=== PATIENT | female | born 1965 | race Caucasian/White ===

== ENCOUNTER → 2017-01-25 | Outpatient (CLI) | payer OTHER ==
[~2017-01-25] MED LIST: SERT1TAB72 PO
[2017-01-25 13:13] LABS: CALCIUM 8.9 mg/dl (8.5-10.1)
[2017-01-25 13:14] LABS: BLOOD UREA NITROGEN 14 mg/dl (7-18); BUN/CREATININE RATIO 17.1 (10-20); CARBON DIOXIDE 27 mmol/L (21-32); CHLORIDE 106 mmol/L (98-107); CHOLESTEROL 165 mg/dl (0-200); CREATININE 0.83 mg/dl (0.60-1.20); GLUCOSE 92 mg/dl (70-99); POTASSIUM 4.2 mmol/L (3.5-5.1); SODIUM 140 mmol/L (136-145)
[2017-01-25 13:17] LABS: CHOLESTEROL/HDL RATIO 2.1; HDL CHOLESTEROL 77 mg/dl; LDL CHOLESTEROL CALCULATED 74 mg/dl; TRIGLYCERIDES 69 mg/dl (0-150); VERY LOW DENSITY LIPOPROT CALC 14 mg/dl
== END | disposition home or self-care (01) ==
LOC: C.LABPVFM 09:39
PROVIDERS: ATTEND Family Medicine
DX: Z13.1 Encounter for screening for diabetes mellitus (principal); Z13.220 Encounter for screening for lipoid disorders

== ENCOUNTER → 2017-01-30 | Outpatient (CLI) | payer OTHER | END | disposition home or self-care (01) | LOC: C.PAPS 18:12 | PROVIDERS: ATTEND Family Medicine | DX: Z12.4 Encounter for screening for malignant neoplasm of cervix (principal) ==

== ENCOUNTER → 2017-08-26 | Outpatient (CLI) | payer BC | END | disposition home or self-care (01) | LOC: C.LABPVFM 11:37 | PROVIDERS: ATTEND Family Medicine | DX: R10.9 Unspecified abdominal pain (principal) ==

== ENCOUNTER 2025-05-11 17:14 | Observation (INO) ==
--- NOTE | 2025-05-11 17:35 | Emergency Department Note ---
Impression & Plan Chest pain ED Provider Note HISTORY OF PRESENT ILLNESS: Patient is a 59-year-old female presenting with chest pain. Patient reports that she has been having progressively worsening chest pain with any sort of activity for the last 2 months. Reports in the last 48 hours she has been having significant amounts of substernal chest pain. Locates the pain to the substernal region with radiation to her left shoulder and left neck. She denies any DVT or PE history. Denies any history of cardiac stents. She is on 81 mg of aspirin daily. She states that she recently had an abnormal echocardiogram and stress test. She saw her hand spinner a few days ago and was told that if she has any worsening of symptoms that she should present to the emergency department. Denies any abdominal pain. Reports some nausea. Denies any vomiting or diarrhea. ROS: as above PHYSICAL EXAM: Constitutional: Patient appears in no acute distress. HENT: Head: Normocephalic and atraumatic. Eyes: EOMI, PERRL Mouth/Throat: Mucous membranes moist. Neck: Trachea midline. Neck supple. Cardiovascular: RRR, No murmurs, rubs or gallops. Intact distal pulses. Pulmonary/Chest: No respiratory distress. Breath sounds clear and equal bilaterally. No wheezes or rales. Abdominal: Abdomen soft, no tenderness, rebound or guarding. Musculoskeletal: No edema, tenderness or deformity noted. Skin: Warm and dry. No rash, erythema, pallor or cyanosis Psychiatric: Appropriate mood and affect for situation. Neurological: Alert and keenly responsive. CN II-XII grossly intact, moving all extremities equally and fully. MDM: - Vitals signs showed hypertension - History obtained via patient. History as above. - Chronic conditions affecting care: HLD; depression; IBS - Differential diagnoses include, but are not limited to: Acute coronary syndrome; pulmonary embolism; dissection; tension pneumothorax; esophageal rupture; pneumonia - Order placed for continuous cardiac monitoring. At this time, monitor showed rate of 75 bpm with normal sinus rhythm, per my interpretation. - External medical records reviewed. Cardiology office visit note dated 05/06/2025 was reviewed. Patient was scheduled for an outpatient cardiac catheterization. It was recommended that she start 81 mg aspirin daily for her abnormal stress echocardiogram suggesting apical ischemia. - EKG image interpreted by myself showed normal sinus rhythm. Rate 73 bpm. QT 368. No acute ischemic changes. However, patient is noted to have some new T wave inversions, most notably in leads II, aVL and aVF. - Patient given 4 mg IV zofran and 4 mg IV morphine in ER for symptomatic management - Laboratory workup interpreted by myself showed normal WBC; stable electrolytes; normal AST/ALT; normal lipase; normal troponin - COVID/flu/RSV negative - CXR image reviewed and interpreted by myself is negative for pneumonia, per my interpretation. - Patient given 4 mg IV zofran and 4 mg IV morphine in ER. - Given patient's ongoing chest pain and known abnormal stress test in the outpatient setting, will admit to hospitalist service for discussion with cardiology about inpatient catheterization. - Patient complaining of worsening chest pain while in the emergency department. Repeat EKG obtained at 1749 reviewed and interpreted by myself showed normal sinus rhythm. Rate 73 bpm. QT 378. No acute ischemic changes. T wave inversion in lead III is still present, but aVL and aVR have resolved. - Discussion was had with community case manager about patient's case and need for admission - Hospitalist consulted for admission - Patient admitted to [facility] service for further evaluation and management. 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 of right ear Sensorineural hearing loss (SNHL) of both ears Atopic dermatitis Allergic rhinitis due to animals Allergic rhinitis due to dust mite Allergic rhinitis due to pollen Nasal valve collapse Nasal septal perforation Nasal septal deviation Hyposmia Chronic idiopathic urticaria Chronic rhinitis Rash Tinnitus, bilateral Conductive hearing loss of left ear with unrestricted hearing of right ear Hearing loss Acquired deviated nasal septum Chronic sinusitis Seasonal allergies History of colitis Mood swings reason for sertraline Right hip pain SVT (supraventricular tachycardia) pt unable to confirm Heart palpitations holter monitor approx 1 year ago - [place]; pt unsure of results -- no meds; no hand spinner -- says "rare" palpitation Medical History Abnormal stress echo History of COVID-19 05/2021: flu symptoms. resolved. 2020: loss of taste and smell. resolved. Depression Hx of basal cell carcinoma "freezes or vincent them off" in the dermatology office Hx of gastric ulcer (1984) Hx of supraventricular tachycardia pt unsure of details - no recent issues Degenerative disc disease Osteoarthritis Endometriosis hx History of colitis IBS (irritable bowel syndrome) Surgical History History of esophagogastroduodenoscopy (EGD) History of nasal septoplasty w/bilateral inferior turbinate reduction-06/18/24-Dr. Nelson History of wisdom tooth extraction History of carpal tunnel release of both wrists History of laparotomy for lysis of adhesion endometriosis History of appendectomy History of elbow surgery BL History of colonoscopy last 06/2020 S/P dilation and curettage History of cryosurgery Cervix in Status post laparoscopy L salpingectomy for ectopic Hx of laparoscopy endometriosis Family History Father Hypertension Hearing loss Heart disease Daughter Anxiety Sister Anxiety Son Asthma Other Allergies No family history of adverse response to anesthesia No family history of bleeding disorder Denies family history of Ovarian cancer Prostate cancer Myocardial infarction Breast cancer Colorectal cancer Uterine cancer Social History Smoking Status: Former smoker Tobacco Type: Cigarettes Age Started Using Tobacco: 14; Age Quit Using Tobacco: 32; packs per day: 1; Second Hand Exposure: No; Do You Dip or Chew Tobacco: No; Hx Alcohol Use: Yes Alcohol type: beer and wine Hx Substance Use: No Preferred Language: Sami Communication Ability: Effective Private Detective Required: No Beliefs That Will Affect Care: None marital status: Current Living Situation: Spouse current occupational status: employed current occupation: [employer] Feels Safe at Home: Yes caffeine: Yes Dental Care, Regularly: Yes Physical Activity Frequency: 3-4 Times per Week Seatbelt Use: always Sunscreen Use: Yes Assistive Devices: Glasses Allergies Allergies Allergy/AdvReac Type Severity Reaction Status Date / Time Sulfa (Sulfonamide Allergy Mild rash Verified 05/11/25 18:59 Antibiotics) tetracycline Allergy Mild rash Verified 05/11/25 18:59 Home Meds Home Medications Medication Instructions Recorded Confirmed L.acidophil-L.casei-B.bifid-B.longum-FOS 1 cap PO QAM 04/19/21 05/11/25 2 billion cell-50 mg capsule (Probiotic Blend) cholecalciferol (vitamin D3) 25 25 mcg PO QAM 04/19/21 05/11/25 mcg (1,000 unit) tablet (Vitamin D3) multivitamin with minerals 1 tab PO QAM 04/19/21 05/11/25 (Hair,Skin and Nails tablet) vitamin B complex 1 cap PO QAM 04/19/21 05/11/25 cetirizine 10 mg tablet 20 mg PO BID 06/09/24 05/11/25 fluticasone propionate 50 2 spray intranasal QAM 06/09/24 05/11/25 mcg/actuation nasal spray,suspension calcium carbonate 500 mg PO DAILY 05/11/25 05/11/25 hydrocortisone 2.5 % topical 1 applic topical BID PRN SKIN 05/11/25 05/11/25 ointment IRRITATIONS hydroxyzine HCl 25 mg tablet 25 mg PO HS PRN Itching 05/11/25 05/11/25 triamcinolone acetonide 0.1 % 1 applic topical BID PRN SKIN 05/11/25 05/11/25 topical ointment IRRITATIONS Previous Rx's Medication Instructions Recorded azelastine 137 mcg (0.1 %) nasal 2 spray intranasal BID PRN nasal 02/21/24 spray congestion #30 mL hydrocodone 5 mg-acetaminophen 325 1 tab PO Q6H PRN pain #30 tabs 06/18/24 mg tablet sertraline 50 mg tablet 50 mg PO QAM #90 tabs 10/14/24 ipratropium bromide 21 mcg (0.03 2 spray intranasal TID PRN 01/06/25 %) nasal spray postnasal drip #90 mL valacyclovir 500 mg tablet 500 mg PO QAM #90 tabs 04/13/25 Results & Data (ED) Vital Signs Vital Signs - 24 hr 05/11/25 17:16 05/11/25 17:36 05/11/25 17:36 Temperature 36.4 C L Temperature Source Temporal Artery Scan Pulse Rate 74 74 Pulse Rate from SpO2 Sensor Respiratory Rate 20 16 Respiratory Effort / Characteristics Non-Labored Respiratory Depth Normal Blood Pressure 156/84 H Blood Pressure Mean 108 Pulse Oximetry 96 98 98 Oxygen Delivery Method Room Air Room Air Room Air Sepsis Recent Fever Within 48 Hours No Sepsis New/Unexplained Change in Mental Status No Sepsis Action Taken by Nursing No Action Required 05/11/25 18:00 05/11/25 18:00 05/11/25 18:00 Temperature Temperature Source Pulse Rate Pulse Rate from SpO2 Sensor Respiratory Rate Respiratory Effort / Characteristics Respiratory Depth Blood Pressure 144/99 H 144/99 H 144/99 H Blood Pressure Mean 105 105 105 Pulse Oximetry Oxygen Delivery Method Sepsis Recent Fever Within 48 Hours Sepsis New/Unexplained Change in Mental Status Sepsis Action Taken by Nursing 05/11/25 18:00 05/11/25 18:02 05/11/25 18:03 Temperature Temperature Source Pulse Rate 68 78 Pulse Rate from SpO2 Sensor 73 Respiratory Rate 15 Respiratory Effort / Characteristics Respiratory Depth Blood Pressure 144/99 H Blood Pressure Mean 105 Pulse Oximetry 95 Oxygen Delivery Method Sepsis Recent Fever Within 48 Hours Sepsis New/Unexplained Change in Mental Status Sepsis Action Taken by Nursing 05/11/25 18:18 05/11/25 18:21 05/11/25 18:48 Temperature Temperature Source Pulse Rate 67 82 73 Pulse Rate from SpO2 Sensor 68 79 72 Respiratory Rate 16 18 20 Respiratory Effort / Characteristics Respiratory Depth Blood Pressure Blood Pressure Mean Pulse Oximetry 96 97 97 Oxygen Delivery Method Sepsis Recent Fever Within 48 Hours Sepsis New/Unexplained Change in Mental Status Sepsis Action Taken by Nursing 05/11/25 18:54 05/11/25 18:57 05/11/25 19:00 Temperature Temperature Source Pulse Rate 77 71 Pulse Rate from SpO2 Sensor 74 71 Respiratory Rate 16 13 Respiratory Effort / Characteristics Respiratory Depth Blood Pressure 134/78 Blood Pressure Mean 123 Pulse Oximetry 96 97 Oxygen Delivery Method Sepsis Recent Fever Within 48 Hours Sepsis New/Unexplained Change in Mental Status Sepsis Action Taken by Nursing 05/11/25 19:09 05/11/25 19:17 Temperature Temperature Source Pulse Rate 66 71 Pulse Rate from SpO2 Sensor 68 70 Respiratory Rate 14 18 Respiratory Effort / Characteristics Respiratory Depth Blood Pressure Blood Pressure Mean Pulse Oximetry 97 95 Oxygen Delivery Method Sepsis Recent Fever Within 48 Hours Sepsis New/Unexplained Change in Mental Status Sepsis Action Taken by Nursing Laboratory Data 05/11/25 17:29 05/11/25 17:29 Lab Results 05/11/25 05/11/25 Range/Units 17:29 Unknown WBC 5.13 (4.8-10.8) K/ul RBC 4.16 L (4.20-5.40) M/uL Hgb 13.5 (12.0-16.0) g/dl Hct 37.8 (37.0-47.0) % MCV 90.9 (80.0-100.0) fL MCH 32.5 (25.0-34.0) pg MCHC 35.7 (32.0-36.0) g/dL RDW Std Deviation 40.4 (36.4-46.3) fL RDW Coeff of [place] 12.1 (11.5-14.5) % Plt Count 247 (130-400) K/uL MPV 10.5 (9.4-12.4) fL Immature Gran % (Auto) 0.2 % Neut % (Auto) 45.8 % Lymph % (Auto) 44.8 % [place] % (Auto) 7.2 % Eos % (Auto) 1.6 % Baso % (Auto) 0.4 % Neut # (Auto) 2.35 (1.40-6.50) K/uL Lymph # (Auto) 2.30 (1.20-3.40) K/uL Upson # (Auto) 0.37 (0.11-0.59) K/uL Eos # (Auto) 0.08 (0.00-0.50) K/uL Baso # (Auto) 0.02 (0.00-0.20) K/uL Immature Gran # (Auto) 0.01 (0.01-0.20) K/uL Sodium 139 (136-145) mmol/L Potassium 4.1 (3.5-5.1) mmol/L Chloride 107 (98-107) mmol/L Carbon Dioxide 24 (21-32) mmol/L Anion Gap 8 (3-11) BUN 25 H (6-23) mg/dl Creatinine 0.76 (0.6-1.2) mg/dl Est Cr Clr Drug Dosing 70.2 ml/min eGFR 89.65 BUN/Creatinine Ratio 32.9 H (10-20) Glucose 95 (70-99(Fasting)) mg/dl Calcium 9.1 (8.6-10.3) mg/dl Total Bilirubin 0.3 (0.2-1.0) mg/dl AST 20 (13-39) U/L ALT 13 (7-52) U/L Alkaline Phosphatase 88 (34-104) U/L Troponin I High Sens 3.1 (0-14) pg/ml Total Protein 7.4 (6.0-8.3) gm/dl Albumin 4.4 (3.4-5.0) gm/dl Globulin 3.0 (2.5-4.0) gm/dl Albumin/Globulin Ratio 1.5 (0.9-2) Lipase 39 (11-82) U/L SARS-CoV-2 (PCR) NEGATIVE (Negative) Influenza Type A (PCR) Negative (Neg) Influenza Type B (PCR) Negative (Neg) RSV (RT-PCR) Negative (Neg) Administered Medications Discontinued Medications Morphine Sulfate (Morphine Sulfate 4 Mg/Ml 1 Ml Carp\\Vial) 4 mg IV NOW STA Stop: 05/11/25 17:35 Last Admin: 05/11/25 17:45 Dose: 4 mg Documented By: YVETTE Ondansetron HCl (Ondansetron Inj 2 Mg/Ml 2 Ml Vial) 4 mg IV NOW STA Stop: 05/11/25 17:35 Last Admin: 05/11/25 17:45 Dose: 4 mg Documented By: YVETTE Imaging Data Radiologist's Impression: Chest X-Ray 05/11/25 17:24 Chest radiograph, one view History: Chest pain Comparison: None Findings: Single AP view of the chest performed. No focal consolidation or pleural effusion. No pneumothorax. The cardiomediastinal silhouette is within normal limits. Normal pulmonary vascularity. No evidence for lymphadenopathy. No visualized bony or soft tissue abnormality. Impression: Normal chest radiograph Electronically signed by Shahid Jolly 05-11-2025 6:33 PM Discharge Plan Visit Data Chief Complaint: Chest Pain Stated Complaint: CHEST PAIN ED Provider: Melani Graf Discharge Problem: Chest pain Condition: Fair Forms Stand Alone Forms: My [facility] [place] [employer] Packaging Prescriptions Prescriptions: No Action sertraline 50 mg tablet 50 mg PO QAM Qty: 90 3RF Rx Instructions: take 1 tablet by mouth daily valacyclovir 500 mg tablet 500 mg PO QAM Qty: 90 1RF azelastine 137 mcg (0.1 %) spray,non-aerosol 2 spray intranasal BID PRN (Reason: nasal congestion) Qty: 30 11RF Rx Instructions: administer into each nostril ipratropium bromide 21 mcg (0.03 %) spray,non-aerosol 2 spray intranasal TID PRN (Reason: postnasal drip) Qty: 90 3RF Rx Instructions: administer into each nostril Hair,Skin and Nails Tablet 1 tab PO QAM vitamin B complex Capsule 1 cap PO QAM cholecalciferol (vitamin D3) [Vitamin D3] 25 mcg (1,000 unit) Tablet 25 mcg PO QAM Probiotic Blend 2 billion cell-50 mg Capsule 1 cap PO QAM fluticasone propionate 50 mcg/actuation spray,suspension 2 spray intranasal QAM Rx Instructions: administer into each nostril cetirizine 10 mg Tablet 20 mg PO BID hydrocodone-acetaminophen 5-325 mg tablet 1 tab PO Q6H PRN (Reason: pain) Qty: 30 0RF calcium carbonate [Calcium 500] 500 mg calcium (1,250 mg) Tablet 500 mg PO DAILY triamcinolone acetonide 0.1 % ointment 1 applic topical BID PRN (Reason: SKIN IRRITATIONS) Rx Instructions: Apply to affected area of neck and chest twice a day for 7 to 10 days hydroxyzine HCl 25 mg tablet 25 mg PO HS PRN (Reason: Itching) Rx Instructions: TAKE 1 TABLET BY MOUTH ONCE DAILY AT BEDTIME FOR ITCHING hydrocortisone 2.5 % ointment 1 applic topical BID PRN (Reason: SKIN IRRITATIONS) Rx Instructions: Apply to affected area face twice a day for 7 to 10 days Referrals Referrals: Karlene Spears MD [Primary Care Provider] -
[2025-05-11] MEDS: MoRPHine SULFATE 4 MG/ML 1 ML CARP\\VIAL IV STA (17:45)
[2025-05-11] MEDS: ONDANSETRON INJ 2 MG/ML 2 ML VIAL IV STA (17:45)
[2025-05-11 17:48] LABS: Hematocrit (blood only) 37.8 % (37.0-47.0); Hemoglobin 13.5 g/dl (12.0-16.0); Immature Granulocytes # (auto) 0.01 K/uL (0.01-0.20); Immature Granulocytes % (auto) 0.2 %; Mean Corpuscular Hemoglobin 32.5 pg (25.0-34.0); Mean Corpuscular Volume 90.9 fL (80.0-100.0); Platelet Count 247 K/uL (130-400); RDW Standard Deviation 40.4 fL (36.4-46.3); Red Blood Count 4.16 M/uL (4.20-5.40); White Blood Count 5.13 K/ul (4.8-10.8)
[2025-05-11 18:09] LABS: Alanine Aminotransferase 13.0 U/L (7-52); Albumin Globulin Ratio 1.5 (0.9-2); Albumin Level 4.4 gm/dl (3.4-5.0); Alkaline Phosphatase 88.0 U/L (34-104); Anion Gap 8.0 (3-11); Bilirubin,Total 0.3 mg/dl (0.2-1.0); Blood Urea Nitrogen 25.0 mg/dl (6-23); Calcium 9.1 mg/dl (8.6-10.3); Carbon Dioxide 24.0 mmol/L (21-32); Chloride 107.0 mmol/L (98-107); Creatinine Clr Calc Pharmacy 70.2 ml/min; Globulin 3.0 gm/dl (2.5-4.0); Glucose 95.0 mg/dl (70-99(Fasting)); Lipase 39.0 U/L (11-82); Potassium 4.1 mmol/L (3.5-5.1); Sodium 139.0 mmol/L (136-145); Total Protein 7.4 gm/dl (6.0-8.3)
--- NOTE | 2025-05-11 18:34 | XRay Report ---
Chest radiograph, one view History: Chest pain Comparison: None Findings: Single AP view of the chest performed. No focal consolidation or pleural effusion. No pneumothorax. The cardiomediastinal silhouette is within normal limits. Normal pulmonary vascularity. No evidence for lymphadenopathy. No visualized bony or soft tissue abnormality. Impression: Normal chest radiograph Electronically signed by Shahid Jolly 05-11-2025 6:33 PM
[2025-05-11 18:45] LABS: Influenza A virus by PCR Negative (Neg); Influenza B virus by PCR Negative (Neg); SARS CoV2 RNA(COVID-19) Ceph NEGATIVE (Negative)
--- NOTE | 2025-05-11 19:33 | History & Physical Report ---
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 Her evaluation is overall unremarkable at this time with a normal troponin but pending the repeat. She does have T wave abnormalities in the inferior leads on her initial EKG, seem to be mostly resolved on repeat. Continues to remain with chest pain, unresolved. Admission for persistent chest pain. #Chest pain Ongoing chest pain which has been persistent for 2 months, but worsened the night CUSTOMER CARE CONSULTANT and then again at 1530 day of arrival. She was diagnosed with a chest pain syndrome in presence of an abnormal stress echo per most recent cardiology note (05/06/[address] Chery). Stress echo April 22, 2025 revealed abnormal EKG response and suggested small area of apical hypokinesis with exercise. She is to be scheduled for cardiac catheterization but there was difficulties having this covered by insurance. Wells criteria 0; no clinical signs of DVT. Due to ongoing and worsening symptoms, admission for chest pain with cardio consult placed. - CBC grossly unremarkable; CMP BUN 25 and ratio 32.9; troponin 3.1, pending repeat - COVID/Flu/RSV negative - CXR WNL - EKG initially NSR with T wave abnormalities, resolved in EKG #2 - EKG prn CP - Echo 04/22/2025 abnormal for ischemia - Lipid panel 04/2025 total 217, LDL 110, HDL 76, TG 153; not on statin - start atorvastatin 40mg daily - Zofran prn N/V - NTG prn CP - Continue ASA daily - Cardiology consulted - appreciate input + recs #Allergies/Idiopathic urticaria- Cetirizine, azelastine nasal spray prn, flonase nasal spray, hydroxyzine prn, ipratropium bromide nasal spray prn - hold prn, continue daily medications #Psych- Sertraline - continue #Cold sores- Valacyclovir, takes every other day, last dose 05/10/2025 - continue No longer taking opioids; PDMP independently reviewed at time of admission - d/c hydrocodone-acetaminophen Dispo: Admit, PCU VTE Prophylaxis: SCDs This document was dictated utilizing [employer]. Please excuse any grammatical errors that may be secondary to use of this software. 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 Patient states that for the past 1 to 2 months she has had on and off chest pain that was mainly with exertion. The night CUSTOMER CARE CONSULTANT the patient noticed that she was having some left-sided chest discomfort which could not be resolved with changing position. She states that the day CUSTOMER CARE CONSULTANT she was on a walk for exercise and noticed that by the end of the walk she was incredibly fatigued which was abnormal for her as she is normally able to. She states that after climbing a flight of steps she normally have some SOB but then resolved with rest. Over the past day CUSTOMER CARE CONSULTANT, the fatigue has been worsening and the chest pain has been unresolved. States that she took aspirin the past 2 days CUSTOMER CARE CONSULTANT which seemed to help the chest pain minimally but it was still present. She describes the pain as starting to worsen at 1530 the day of arrival, described as a heaviness with occasional stabbing in the left side. It is located just under her breast, directly to the back in the same location, into her left side of neck and jaw, but not into her arm. Does not radiate elsewise. No nausea or vomiting. She states at its worst, it is a 6 out of 10 on the pain scale at presently it is a 3 out of 10 on the pain scale s/p morphine. She does have occasional dizziness that comes and goes mainly with deep breaths, but not elsewise. Denies palpitations, abdominal pain, N/V/D/C, numbness/tingling, fever/chills, URI symptoms, LUTS, calf pain or tenderness, edema, weakness, syncope, or falls. She has no history of DVT or PE. No family history of such. No hematologic conditions. She states that she was scheduled to have a catheterization but given that insurance would not cover it, it was not able to be placed on the schedule yet. Given that her pain was on relentless, she came to the ED. ED evaluation reveals CBC without leukocytosis, H&H stable; CMP BUN 25, ratio 32.9; troponin 3.1, pending repeat; COVID/flu/RSV negative; CXR normal; EKG #1 NSR, right superior axis deviation, T wave abnormality inferior leads at 73 bpm; EKG #2 NSR at 73 bpm.; Provided with Zofran 4 mg IV and morphine 4 mg IV in ED. Please see Dr. Lopez's attestation for adjustments/additions to treatment plan. Allergies Allergy/AdvReac Type Severity Reaction Status Date / Time Sulfa (Sulfonamide Allergy Mild rash Verified 05/11/25 18:59 Antibiotics) tetracycline Allergy Mild rash Verified 05/11/25 18:59 Home Medications Medication Instructions Recorded Confirmed Type L.acidophil-L.casei-B.bifid-B.longum-FOS 1 cap PO QAM 04/19/21 05/11/25 History 2 billion cell-50 mg capsule (Probiotic Blend) cholecalciferol (vitamin D3) 25 25 mcg PO QAM 04/19/21 05/11/25 History mcg (1,000 unit) tablet (Vitamin D3) multivitamin with minerals 1 tab PO QAM 04/19/21 05/11/25 History (Hair,Skin and Nails tablet) vitamin B complex 1 cap PO QAM 04/19/21 05/11/25 History azelastine 137 mcg (0.1 %) nasal 2 spray intranasal BID PRN nasal 02/21/24 05/11/25 Rx spray congestion #30 mL cetirizine 10 mg tablet 20 mg PO BID 06/09/24 05/11/25 History fluticasone propionate 50 2 spray intranasal QAM 06/09/24 05/11/25 History mcg/actuation nasal spray,suspension hydrocodone 5 mg-acetaminophen 325 1 tab PO Q6H PRN pain #30 tabs 06/18/24 05/11/25 Rx mg tablet sertraline 50 mg tablet 50 mg PO QAM #90 tabs 10/14/24 05/11/25 Rx ipratropium bromide 21 mcg (0.03 2 spray intranasal TID PRN 01/06/25 05/11/25 Rx %) nasal spray postnasal drip #90 mL valacyclovir 500 mg tablet 500 mg PO QAM #90 tabs 04/13/25 05/11/25 Rx calcium carbonate 500 mg PO DAILY 05/11/25 05/11/25 History hydrocortisone 2.5 % topical 1 applic topical BID PRN SKIN 05/11/25 05/11/25 History ointment IRRITATIONS hydroxyzine HCl 25 mg tablet 25 mg PO HS PRN Itching 05/11/25 05/11/25 History triamcinolone acetonide 0.1 % 1 applic topical BID PRN SKIN 05/11/25 05/11/25 History topical ointment IRRITATIONS Past Med/Surg History Problem List Chest pain (Acute) Hypercholesterolemia Chest pain radiating to jaw Chest pain Mixed conductive and sensorineural hearing loss of left ear with restricted hearing of right ear Sensorineural hearing loss (SNHL) of both ears Atopic dermatitis Allergic rhinitis due to animals Allergic rhinitis due to dust mite Allergic rhinitis due to pollen Nasal valve collapse Nasal septal perforation Nasal septal deviation Hyposmia Chronic idiopathic urticaria Chronic rhinitis Rash Tinnitus, bilateral Conductive hearing loss of left ear with unrestricted hearing of right ear Hearing loss Acquired deviated nasal septum Chronic sinusitis Seasonal allergies History of colitis Mood swings reason for sertraline Right hip pain SVT (supraventricular tachycardia) pt unable to confirm Heart palpitations holter monitor approx 1 year ago - [place]; pt unsure of results -- no meds; no study abroad coordinator -- says "rare" palpitation Medical History Abnormal stress echo History of COVID-19 05/2021: flu symptoms. resolved. 2020: loss of taste and smell. resolved. Depression Hx of basal cell carcinoma "freezes or vincent them off" in the dermatology office Hx of gastric ulcer (1984) Hx of supraventricular tachycardia pt unsure of details - no recent issues Degenerative disc disease Osteoarthritis Endometriosis hx History of colitis IBS (irritable bowel syndrome) Surgical History History of esophagogastroduodenoscopy (EGD) History of nasal septoplasty w/bilateral inferior turbinate reduction-06/18/24-Dr. Nelson History of wisdom tooth extraction History of carpal tunnel release of both wrists History of laparotomy for lysis of adhesion endometriosis History of appendectomy History of elbow surgery BL History of colonoscopy last 06/2020 S/P dilation and curettage History of cryosurgery Cervix in 1980s Status post laparoscopy L salpingectomy for ectopic Hx of laparoscopy endometriosis Family History Father Hypertension Hearing loss Heart disease Daughter Anxiety Sister Anxiety Son Asthma Other Allergies No family history of adverse response to anesthesia No family history of bleeding disorder Denies family history of Ovarian cancer Prostate cancer Myocardial infarction Breast cancer Colorectal cancer Uterine cancer Social History Smoking Status: Former smoker Tobacco Type: Cigarettes Age Started Using Tobacco: 14; Age Quit Using Tobacco: 32; packs per day: 1; Second Hand Exposure: No; Do You Dip or Chew Tobacco: No; Hx Alcohol Use: Yes Alcohol type: beer and wine Hx Substance Use: No Preferred Language: Syriac Communication Ability: Effective Skiing Instructor Required: No Beliefs That Will Affect Care: None marital status: Current Living Situation: Spouse current occupational status: employed current occupation: [employer] Feels Safe at Home: Yes Safety Concerns: Feels Safe At This Time caffeine: Yes Dental Care, Regularly: Yes Physical Activity Frequency: 3-4 Times per Week Seatbelt Use: always Sunscreen Use: Yes Assistive Devices: None Review of Systems Review of Systems: All systems reviewed & are unremarkable except as noted in Subjective Physical Exam Physical Exam: General: No acute distress Skin: Warm and dry Head: Normocephalic, atraumatic Eyes: PERRL, conjunctivae clear, sclera non-icteric ENT: External ear and ear canal without swelling; nose atraumatic; good dentition, tongue normal appearance, pharynx normal Neck: Supple, no LAD Cardio: RRR, no M/G/R, S1 and S2 normal; no tenderness to palpation of chest wall Resp: No respiratory distress, Lungs CTA in all lobes bilaterally, no wheezes, rales, or rhonchi Abdomen: Soft, symmetric, nontender; No masses or hepatosplenomegaly; Bowel sounds normoactive MSK: No deformities; pulses palpable and equal; no edema; no calf size discrepancies. Neuro: Awake, alert; Sensation intact bilaterally; CN grossly intact Psych: Appropriate mood and affect; good judgement and insight. is present in room at time of visit. Results & Data Results & Data Vital Signs (Past 12 Hours) Vital Signs Temp Pulse Resp BP Pulse Ox O2 Del Method 05/11/25 19:17 71 18 95 05/11/25 19:09 66 14 97 05/11/25 19:00 134/78 05/11/25 18:57 71 13 97 05/11/25 18:54 77 16 96 05/11/25 18:48 73 20 97 05/11/25 18:21 82 18 97 05/11/25 18:18 67 16 96 05/11/25 18:03 78 15 95 05/11/25 18:02 68 05/11/25 18:00 144/99 H 05/11/25 18:00 144/99 H 05/11/25 18:00 144/99 H 05/11/25 18:00 144/99 H 05/11/25 17:36 74 16 98 Room Air 05/11/25 17:36 98 Room Air 05/11/25 17:16 36.4 C L 74 20 156/84 H 96 Room Air Laboratory Results 05/11/25 05/11/25 Unknown 17:29 WBC 5.13 RBC 4.16 L Hgb 13.5 Hct 37.8 MCV 90.9 MCH 32.5 MCHC 35.7 RDW Std Deviation 40.4 RDW Coeff of [place] 12.1 Plt Count 247 MPV 10.5 Immature Gran % (Auto) 0.2 Neut % (Auto) 45.8 Lymph % (Auto) 44.8 [place] % (Auto) 7.2 Eos % (Auto) 1.6 Baso % (Auto) 0.4 Neut # (Auto) 2.35 Lymph # (Auto) 2.30 [place] # (Auto) 0.37 Eos # (Auto) 0.08 Baso # (Auto) 0.02 Immature Gran # (Auto) 0.01 Sodium 139 Potassium 4.1 Chloride 107 Carbon Dioxide 24 Anion Gap 8 BUN 25 H Creatinine 0.76 Est Cr Clr Drug Dosing 70.2 eGFR 89.65 BUN/Creatinine Ratio 32.9 H Glucose 95 Calcium 9.1 Total Bilirubin 0.3 AST 20 ALT 13 Alkaline Phosphatase 88 Troponin I High Sens 3.1 Total Protein 7.4 Albumin 4.4 Globulin 3.0 Albumin/Globulin Ratio 1.5 Lipase 39 SARS-CoV-2 (PCR) NEGATIVE Influenza Type A (PCR) Negative Influenza Type B (PCR) Negative RSV (RT-PCR) Negative Diagnostic Findings Chest X-Ray 05/11/25 17:24 Chest radiograph, one view History: Chest pain Comparison: None Findings: Single AP view of the chest performed. No focal consolidation or pleural effusion. No pneumothorax. The cardiomediastinal silhouette is within normal limits. Normal pulmonary vascularity. No evidence for lymphadenopathy. No visualized bony or soft tissue abnormality. Impression: Normal chest radiograph Electronically signed by Shahid Jolly 05-11-2025 6:33 PM Medications Administered Zofran 4 mg IV Morphine 4 mg IV ECG Additional Comments: EKG #1: NSR, right superior axis deviation, T wave abnormality of inferior leads 73 bpm, LA 126, QRS 76, QT/QTc 368/405, PRT*/199/191 EKG #2: NSR 70 bpm, LA 138, QRS 76, QT/QTc 378/416, PRT 62/2/10 Code Status & VTE Plan Code Status Full Supervising Physician Co-Signing Physician Notes Patient seen and examined, chart reviewed, case discussed with NORBERTO Chairez and I agree with the assessment and plan as above. In brief, patient is a 59yo female with exertional chest pain with abnormal stress echo suggesting apical ischemia. Plan to proceed with outpatient cardiac catheterization, however, waiting for insurance approval. Patient presents with worsening chest pain today - heavy pressure on the left chest with radiation to the arm and neck. No history of CAD, [place], catheterization in the past On exam she is afebrile, HD stable +S12/S2, regular, no m/r/g, no reproducible chest wall pain CTA no rales/rhonchi/wheezes Abd soft, NT/ND Ext warm, well perfused Labs and images reviewed Troponin x 2 NEGATIVE CXR wtih no acute findings EKG with TWI then resolved Assessment/Plan -Trend troponin -Nitro PRN -Cardiology consultation -Keep NPO for now except meds -ASA, Statin -Remainder as above PG Care Time/CCT Total # of Minutes Spent Total Time Spent with Patient: Total time spent is greater than 50% in coordination of care (as documented) at patient's floor/unit and/or counseling patient: Coding Level of Care Code 45537 INT INP/OBS CARE 3/75MIN Diagnoses Chest pain R07.9
[2025-05-11] MEDS: NITROGLYCERIN SL 0.4 MG/TAB TAB SL STA (20:10)
[2025-05-11] MEDS ORDERED: POLYETHYLENE (MIRALAX) 17 GM PACK PO PRN (22:22)
[2025-05-11] MEDS ORDERED: ONDANSETRON INJ 2 MG/ML 2 ML VIAL IV PRN (22:22)
[2025-05-11] MEDS ORDERED: MAGNESIUM HYDROXIDE SUSP 30 ML UDC PO PRN (22:22)
[2025-05-11] MEDS ORDERED: NITROGLYCERIN SL 0.4 MG/TAB TAB SL PRN (22:22)
[2025-05-11] MEDS ORDERED: MELATONIN 3 MG TAB PO PRN (22:22)
[2025-05-11] MEDS: CETIRIZINE HCL 10 MG TABLET PO SCH (22:45)
[2025-05-12 06:05] LABS: Hematocrit (blood only) 36.5 % (37.0-47.0); Hemoglobin 13.2 g/dl (12.0-16.0); Mean Corpuscular Hemoglobin 32.8 pg (25.0-34.0); Mean Corpuscular Volume 90.8 fL (80.0-100.0); Platelet Count 222 K/uL (130-400); RDW Standard Deviation 39.8 fL (36.4-46.3); Red Blood Count 4.02 M/uL (4.20-5.40); White Blood Count 3.96 K/ul (4.8-10.8)
[2025-05-12] MEDS: ATORVASTATIN 40 MG TAB PO SCH (09:15)
[2025-05-12] MEDS: CHOLECALCIFEROL 25 MCG (1000 UNITS) TAB PO SCH (09:15)
[2025-05-12] MEDS: FLUTICASONE PROPIONATE NA SPR 16 GM BTL SCH (09:15)
[2025-05-12] MEDS: CALCIUM CARBONATE 1250MG TAB PO SCH (09:15)
[2025-05-12] MEDS: SERTRALINE HCL 50 MG TABLET PO SCH (09:16)
--- NOTE | 2025-05-12 10:26 | Cardiology Consultation ---
Date of Consultation May 12, 2025 Assessment & Plan (1) Chest pain: (2) Abnormal stress echo: Plan 1. Chest pain: The patient symptoms are atypical and that they do not seem to occur with exertion. On her exercise testing she did not have symptoms. Despite an extended episode of chest pain yesterday there was no elevation in her biomarkers suggesting that her symptoms are likely related to ischemia. However, she does have an abnormal stress test and was previously advised to undergo coronary angiography for an evaluation. I think this represents an opportune time given her symptoms and prior testing. I did describe the risks and benefits of the procedure. We described all alternatives as well. She is willing to proceed. Other possible etiologies would include pleuritis, musculoskeletal pain or perhaps even a viral syndrome. She is describing more coughing and pleuritic symptoms currently. History of Present Illness Reason for Consultation: Chest pain, abnormal stress test Requesting Physician: Contreras Attending Physician: Asaf Sheth History of Present Illness The patient is a 59-year-old woman with a known history of cardiac disease who has been experiencing symptoms of chest discomfort. Patient states that a few w eeks ago she did have an episode of back, left shoulder and left axillary discomfort. This appeared to happen without provocation. It resolved without any specific intervention. Some associated shortness of breath. She reported this to her primary care physician who arranged for exercise treadmill testing. Patient's treadmill test was abnormal and that she had evidence of ST segment depression and some mild apical wall motion abnormalities with poor contractility overall. She was seen in our cardiology clinic on 05/06/2025 and based on her symptoms and stress test results advised to consider coronary angiography. The patient states that in the interim she has had some additional episodes of similar discomfort. Yesterday she had more significant discomfort that also involve some radiation to the left jaw and neck. This occurred while she was at rest. She feels that it was fairly prolonged in duration. She presented to the emergency room and her symptoms seem to improve either with nitroglycerin or with morphine. She is felt well until this morning when she has began to notice some "chest heaviness". She has had some exertional intolerance recently. She states that climbing hills and walking rapidly now will produce shortness of breath which she feels was not true several months ago. She does not have exertional symptoms however and the discomfort that she describes does not appear to be present with activity. Allergies Allergy/AdvReac Type Severity Reaction Status Date / Time Sulfa (Sulfonamide Allergy Mild rash Verified 05/11/25 18:59 Antibiotics) tetracycline Allergy Mild rash Verified 05/11/25 18:59 Home Medications Medication Instructions Recorded Confirmed Type L.acidophil-L.casei-B.bifid-B.longum-FOS 1 cap PO QAM 04/19/21 05/11/25 History 2 billion cell-50 mg capsule (Probiotic Blend) cholecalciferol (vitamin D3) 25 25 mcg PO QAM 04/19/21 05/11/25 History mcg (1,000 unit) tablet (Vitamin D3) multivitamin with minerals 1 tab PO QAM 04/19/21 05/11/25 History (Hair,Skin and Nails tablet) vitamin B complex 1 cap PO QAM 04/19/21 05/11/25 History azelastine 137 mcg (0.1 %) nasal 2 spray intranasal BID PRN nasal 02/21/24 05/11/25 Rx spray congestion #30 mL cetirizine 10 mg tablet 20 mg PO BID 06/09/24 05/11/25 History fluticasone propionate 50 2 spray intranasal QAM 06/09/24 05/11/25 History mcg/actuation nasal spray,suspension hydrocodone 5 mg-acetaminophen 325 1 tab PO Q6H PRN pain #30 tabs 06/18/24 05/11/25 Rx mg tablet sertraline 50 mg tablet 50 mg PO QAM #90 tabs 10/14/24 05/11/25 Rx ipratropium bromide 21 mcg (0.03 2 spray intranasal TID PRN 01/06/25 05/11/25 Rx %) nasal spray postnasal drip #90 mL valacyclovir 500 mg tablet 500 mg PO QAM #90 tabs 04/13/25 05/11/25 Rx calcium carbonate 500 mg PO DAILY 05/11/25 05/11/25 History hydrocortisone 2.5 % topical 1 applic topical BID PRN SKIN 05/11/25 05/11/25 History ointment IRRITATIONS hydroxyzine HCl 25 mg tablet 25 mg PO HS PRN Itching 05/11/25 05/11/25 History triamcinolone acetonide 0.1 % 1 applic topical BID PRN SKIN 05/11/25 05/11/25 History topical ointment IRRITATIONS Patient History Medical History Abnormal stress echo History of COVID-19 05/2021: flu symptoms. resolved. 2019: loss of taste and smell. resolved. Depression Hx of basal cell carcinoma "freezes or vincent them off" in the dermatology office Hx of gastric ulcer (1984) Hx of supraventricular tachycardia pt unsure of details - no recent issues Degenerative disc disease Osteoarthritis Endometriosis hx History of colitis IBS (irritable bowel syndrome) Surgical History History of esophagogastroduodenoscopy (EGD) History of nasal septoplasty w/bilateral inferior turbinate reduction-06/18/24-Dr. Nelson History of wisdom tooth extraction History of carpal tunnel release of both wrists History of laparotomy for lysis of adhesion endometriosis History of appendectomy History of elbow surgery BL History of colonoscopy last 06/2020 S/P dilation and curettage History of cryosurgery Cervix in Status post laparoscopy L salpingectomy for ectopic Hx of laparoscopy endometriosis Family History Father Hypertension Hearing loss Heart disease Daughter Anxiety Sister Anxiety Son Asthma Other Allergies No family history of adverse response to anesthesia No family history of bleeding disorder Denies family history of Ovarian cancer Prostate cancer Myocardial infarction Breast cancer Colorectal cancer Uterine cancer Social History Smoking Status: Former smoker Tobacco Type: Cigarettes Age Started Using Tobacco: 14; Age Quit Using Tobacco: 32; packs per day: 1; Second Hand Exposure: No; Do You Dip or Chew Tobacco: No; Hx Alcohol Use: Yes Alcohol type: beer and wine Hx Substance Use: No Preferred Language: Mohawk Communication Ability: Effective Beaver Trapper Required: No Beliefs That Will Affect Care: None marital status: Current Living Situation: Spouse current occupational status: employed current occupation: [employer] Feels Safe at Home: Yes Safety Concerns: Feels Safe At This Time caffeine: Yes Dental Care, Regularly: Yes Physical Activity Frequency: 3-4 Times per Week Seatbelt Use: always Sunscreen Use: Yes Assistive Devices: None Review of Systems Review of Systems: Per HPI. Fatigue. Physical Exam Physical Exam: She is alert and oriented x3. Mood affect appear normal. She answered all questions appropriately. HEENT: Sclerae are anicteric. Pupils are equal and reactive to light and accommodation. Extraocular movements were intact. Neuro: Cranial nerves intact Lungs: Lungs are clear to auscultation bilaterally. There are no rales wheezes or rhonchi. She has normal respiratory effort without use of accessory muscles. There is normal pulmonary excursion. Cardiac: The rhythm was regular. S1 and S2 were normal. There are no murmurs on examination. The PMI was not markedly displaced on palpation. Extremities: Patient has bilateral radial pulses that are equal in intensity. There is no evidence cyanosis or clubbing. There was no evidence of significant peripheral edema bilaterally. Skin: There are no rashes noted on examination today. Results & Data Vital Signs (Past 12 Hours) Vital Signs Temp Pulse Pulse Resp BP Pulse Ox O2 Del Method 05/12/25 09:05 69 05/12/25 07:43 36.7 C 68 18 101/52 L 95 Room Air 05/12/25 03:59 36.5 C 73 18 98/63 L 95 Room Air 05/11/25 23:02 36.5 C 68 17 136/66 97 Room Air 05/11/25 22:24 60 Laboratory Results Abnormal Lab Results 05/11/25 05/11/25 05/11/25 17:29 20:28 Unknown WBC 5.13 RBC 4.16 L Hgb 13.5 Hct 37.8 MCV 90.9 MCH 32.5 MCHC 35.7 RDW Std Deviation 40.4 RDW Coeff of [place] 12.1 Plt Count 247 MPV 10.5 Immature Gran % (Auto) 0.2 Neut % (Auto) 45.8 Lymph % (Auto) 44.8 [place] % (Auto) 7.2 Eos % (Auto) 1.6 Baso % (Auto) 0.4 Neut # (Auto) 2.35 Lymph # (Auto) 2.30 [place] # (Auto) 0.37 Eos # (Auto) 0.08 Baso # (Auto) 0.02 Immature Gran # (Auto) 0.01 Sodium 139 Potassium 4.1 Chloride 107 Carbon Dioxide 24 Anion Gap 8 BUN 25 H Creatinine 0.76 Est Cr Clr Drug Dosing 70.2 eGFR 89.65 BUN/Creatinine Ratio 32.9 H Glucose 95 Calcium 9.1 Total Bilirubin 0.3 AST 20 ALT 13 Alkaline Phosphatase 88 Troponin I High Sens 3.1 3.0 Total Protein 7.4 Albumin 4.4 Globulin 3.0 Albumin/Globulin Ratio 1.5 Lipase 39 SARS-CoV-2 (PCR) NEGATIVE Hepatitis C Ab Screen Influenza Type A (PCR) Negative Influenza Type B (PCR) Negative RSV (RT-PCR) Negative 05/12/25 05:39 WBC 3.96 L RBC 4.02 L Hgb 13.2 Hct 36.5 L MCV 90.8 MCH 32.8 MCHC 36.2 H RDW Std Deviation 39.8 RDW Coeff of [place] 11.9 Plt Count 222 MPV 10.7 Immature Gran % (Auto) Neut % (Auto) Lymph % (Auto) [place] % (Auto) Eos % (Auto) Baso % (Auto) Neut # (Auto) Lymph # (Auto) [place] # (Auto) Eos # (Auto) Baso # (Auto) Immature Gran # (Auto) Sodium Potassium Chloride Carbon Dioxide Anion Gap BUN Creatinine Est Cr Clr Drug Dosing eGFR BUN/Creatinine Ratio Glucose Calcium Total Bilirubin AST ALT Alkaline Phosphatase Troponin I High Sens Total Protein Albumin Globulin Albumin/Globulin Ratio Lipase SARS-CoV-2 (PCR) Hepatitis C Ab Screen Negative Influenza Type A (PCR) Influenza Type B (PCR) RSV (RT-PCR) Diagnostic Findings Exercise echocardiogram 04/22/2025: Patient exercised for 6 minutes 30 seconds. No symptoms. [address] depressions in the inferior leads with poor augmentation overall and subtle hypokinesis of the apical segments. Baseline echocardiogram demonstrated preserved LV systolic function without valvular heart disease. Chest x-ray obtained at time of mission was normal. PG Care Time/CCT Total # of Minutes Spent Total Time Spent with Patient: Total time spent is greater than 50% in coordination of care (as documented) at patient's floor/unit and/or counseling patient: Coding Level of Care Code 09228 INT INP/OBS CARE 3/75MIN Diagnoses Chest pain R07.9 Abnormal stress echo R94.39
--- NOTE | 2025-05-12 10:34 | Pre Anesthesia Assessment ---
Date of Service May 12, 2025 Pre Sedation Assessment Vital Signs Temp Pulse Pulse Resp BP BP Pulse Ox 05/12/25 09:05 69 05/12/25 07:43 36.7 C 68 18 101/52 L 95 05/12/25 03:59 36.5 C 73 18 98/63 L 95 05/11/25 23:02 36.5 C 68 17 136/66 97 05/11/25 22:24 60 05/11/25 22:10 36.5 C 68 12 136/66 97 05/11/25 21:07 65 18 123/75 94 05/11/25 20:34 71 19 123/53 L 93 05/11/25 19:17 71 18 95 05/11/25 19:09 66 14 97 05/11/25 19:00 134/78 05/11/25 18:57 71 13 97 05/11/25 18:54 77 16 96 05/11/25 18:48 73 20 97 05/11/25 18:21 82 18 97 05/11/25 18:18 67 16 96 05/11/25 18:03 78 15 95 05/11/25 18:02 68 05/11/25 18:00 144/99 H 05/11/25 18:00 144/99 H 05/11/25 18:00 144/99 H 05/11/25 18:00 144/99 H 05/11/25 17:36 74 16 98 05/11/25 17:36 98 05/11/25 17:16 36.4 C L 74 20 156/84 H 96 O2 Del Method 05/12/25 09:05 05/12/25 07:43 Room Air 05/12/25 03:59 Room Air 05/11/25 23:02 Room Air 05/11/25 22:24 05/11/25 22:10 Room Air 05/11/25 21:07 Room Air 05/11/25 20:34 Room Air 05/11/25 19:17 05/11/25 19:09 05/11/25 19:00 05/11/25 18:57 05/11/25 18:54 05/11/25 18:48 05/11/25 18:21 05/11/25 18:18 05/11/25 18:03 05/11/25 18:02 05/11/25 18:00 05/11/25 18:00 05/11/25 18:00 05/11/25 18:00 05/11/25 17:36 Room Air 05/11/25 17:36 Room Air 05/11/25 17:16 Room Air Cardiovascular + regular rate Respiratory + respiratory effort normal Pre-Sedation Airway Assessment Smoking Status: Former smoker Hx Sleep Apnea: No Hx Difficult Intubation: No Short, Thick Neck: No Thyromental Distance: > or= 3.5 Finger Breadths Oral Cavity: + WNL Mallampati Class: III ASA: ASA3 Procedure Planning Contraindications for Sedation: none Current Medications Reviewed: Yes Notes The planned sedation has been discussed with the patient. Informed Consent was obtained. I have identified the patient, determined the appropriateness of sedation and have assessed the patient immediately prior to the procedure. All medicine(s) and interventions are by my order.
[2025-05-12] MEDS: ASPIRIN 81 MG CHEW ONE (11:25)
[2025-05-12] MEDS: NITROGLYCERIN/D5W 100MCG/ML 20ML SYR ONE (12:55)
[2025-05-12] MEDS: LIDOCAINE 1% LOCAL 20 ML VIAL ONE (12:55)
[2025-05-12] MEDS: niCARdipine 2,000 MCG/20 ML SYR ONE (12:55)
[2025-05-12] MEDS: HEPARIN (PORCINE) 1000 UNIT/ML 10 ML (CATH LAB USE ONLY) ONE (13:05)
[2025-05-12] MEDS: MIDAZOLAM HCL 1 MG/ML 2ML VIAL ONE (13:07)
[2025-05-12] MEDS: OPTIRAY 350 ONE (13:09)
--- NOTE | 2025-05-12 13:09 | Cardiac Catheterization ---
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 Cardiac Status Clinical evaluation leading to the procedure CAD Presenation: Positive Stress Test Diagnostic Physicians Name: Shahid Arthur MD Closure Device Recommendations: Medical Therapy and/or Counseling Cardiac Cath Procedure Full Procedure Date May 12, 2025 Pre-Procedure Diagnosis Pre-Procedure Diagnosis: Positive Stress Test AUC Score AUC Score: 7 Post-Procedure Diagnosis Post-Procedure Diagnosis: Normal Coronary Arteries Procedure(s) Performed Procedure(s) Performed: Coronary Angiography and Left Heart Cath Flight Operations Coordinator Shahid Arthur MD Estimated Blood Loss Estimated Blood Loss: 5cc Medication(s) Medication(s): Fentanyl, Heparin, Lidocaine 1%, Nicardipine, Nitroglycerin and Versed Summary of Findings Procedure performed: Left heart catheterization, selective coronary angiography Staff sport internship: Shahid Arthur MD Indication: The patient is a 59-year-old woman with a history of atypical chest discomfort and an abnormal stress test. She presents today for coronary angiography to evaluate symptoms and testing abnormalities. Procedure in detail: The patient was informed of the risks benefits and alternatives to the intended procedure, he understood such and wished to proceed. She was taken to the cardiac catheterization suite in a fasting state. Conscious sedation was administered per protocol and the patient was monitored electrocardiographically throughout today's procedure. The right wrist area was prepped and draped in usual sterile fashion. This area was anesthetized using subcutaneous administration of a lidocaine solution. The right radial artery was then accessed using Seldinger technique, and a arterial sheath was placed at this site over a guidewire. The sheath was used to facilitate passage of the cardiac catheter for coronary angiography and left heart catheterization. Coronary angiogram was then obtained in multiple orthogonal views prior to removal of the catheter. At the conclusion of the procedure the sheath was removed and hemostasis was achieved at the access site using manual pressure. The patient tolerated procedure well, there were no immediate complications. Equipment used: 5 [place] 4 Findings: Coronary angiography Left Main: Left main was relatively short but bifurcated normally in the left anterior descending and left circumflex arteries. No disease in this vessel Left anterior descending: Left anterior sending was a relatively small vessel at the apex. It produced a large first diagonal branch into an additional diminutive diagonal branches. Again, it tapers significantly towards the apex and the distal vessel is relatively small. No obstructive disease in the LAD Left circumflex: The left circumflex was a nondominant vessel. It produced 3 small OM branches. No obstructive disease in this vessel. Right coronary artery: Right coronary was a dominant vessel. Produced a PLB and a PDA branch. No obstructive disease in this vessel. Impression: Right dominant coronary system Relatively small distal and branch coronaries No obstructive coronary disease Normal left ventricular filling pressures No evidence of aortic stenosis Hemodynamics Rest Ao:: 78/52 mmHg Final Ao: 94/54 mmHg LV: 73/0 millimeters mercury Left ventricular end-diastolic pressure 4mmHg Recommendations Recommendations: Medical Therapy and/or Counseling Radiation Exposure (mGy) 395 Contrast (mls) 40 Procedural Complication(s) None Disposition Mine Engineering Supervisor Holding/Recovery I attest to the content of the Intraoperative Record and any orders documented therein. Any exceptions are noted below. [facility] Card Cath Procedure Codes Cardiac Catheterization Procedure 1: Cardiovascular Cath Procedures: 07141 Coronaries and LHC (+/-LV) Moderate Sedation Procedure 1: Sedation/Anesthesia: 87306 Mod Sedation by the same physician;Init15 Min Child Age 5 & Up Procedure 2: Sedation/Anesthesia: 38235 Mod Sedation by the same physician; Ea [id number] Minutes PG Care Time/CCT Total # of Minutes Spent Total Time Spent with Patient: Total time spent is greater than 50% in coordination of care (as documented) at patient's floor/unit and/or counseling patient:
--- NOTE | 2025-05-12 13:09 | Post Anesthesia Assessment ---
Date of Service May 12, 2025 Post Sedation Assessment Vital Signs Temp Pulse Pulse Resp BP BP Pulse Ox 05/12/25 11:25 65 14 122/69 95 05/12/25 09:05 69 05/12/25 07:43 36.7 C 68 18 101/52 L 95 05/12/25 03:59 36.5 C 73 18 98/63 L 95 05/11/25 23:02 36.5 C 68 17 136/66 97 05/11/25 22:24 60 05/11/25 22:10 36.5 C 68 12 136/66 97 05/11/25 21:07 65 18 123/75 94 05/11/25 20:34 71 19 123/53 L 93 05/11/25 19:17 71 18 95 05/11/25 19:09 66 14 97 05/11/25 19:00 134/78 05/11/25 18:57 71 13 97 05/11/25 18:54 77 16 96 05/11/25 18:48 73 20 97 05/11/25 18:21 82 18 97 05/11/25 18:18 67 16 96 05/11/25 18:03 78 15 95 05/11/25 18:02 68 05/11/25 18:00 144/99 H 05/11/25 18:00 144/99 H 05/11/25 18:00 144/99 H 05/11/25 18:00 144/99 H 05/11/25 17:36 74 16 98 05/11/25 17:36 98 05/11/25 17:16 36.4 C L 74 20 156/84 H 96 O2 Del Method 05/12/25 11:25 Room Air 05/12/25 09:05 05/12/25 07:43 Room Air 05/12/25 03:59 Room Air 05/11/25 23:02 Room Air 05/11/25 22:24 05/11/25 22:10 Room Air 05/11/25 21:07 Room Air 05/11/25 20:34 Room Air 05/11/25 19:17 05/11/25 19:09 05/11/25 19:00 05/11/25 18:57 05/11/25 18:54 05/11/25 18:48 05/11/25 18:21 05/11/25 18:18 05/11/25 18:03 05/11/25 18:02 05/11/25 18:00 05/11/25 18:00 05/11/25 18:00 05/11/25 18:00 05/11/25 17:36 Room Air 05/11/25 17:36 Room Air 05/11/25 17:16 Room Air Recovery Score Activity: Moves 4 extremities Respiration: Deep Breath/Cough Circulation: +/-20% PreAnes Value Consciousness: Fully Awake Oxygen Saturation: > 92% On Room Air Discharge Sedation Level of Care: Fast Track Phase II Post Sedation Plan On clinical assessment, the patient appears to have tolerated the sedation without complications. Patient is recovering as anticipated. Patient will continue to be monitored by nursing and may be discharged when sedation discharge criteria are met per below protocol. Upon Completions of procedure up to 15 minutes continue every 5 minute vital signs and the P.A.R. score; then discharge to a Phase I or Fast Track to Phase II per the following guidelines: * Discharge Patient to appropriate Phase II area if PAR is 8 or greater or return to pre- procedure baseline. The post - procedure orders will be as directed. * If PAR score is less than 8 or not return to pre-procedure baseline then patient will follow Phase I monitoring till PAR is reached for Phase II. The Phase I may be done in procedure room or may call to secure a Phase I area. * If naloxone or flumazenil are used for reversal, hold in Phase I for continued monitoring from when last reversal dose was given for a minimum of 60 minutes or longer pending the nurse and/or physician discretion of patient condition before discharge to Phase II. Please call the Sedation Physician to re-evaluate and complete post-note for discharge to Phase II area. Do NOT discharge from procedure sedation or Phase 1 until post- sedation evalu ation note is complete by procedure /sedation MD Sedation Discharge Instructions to be given to the patient at discharge to home.
[2025-05-12] MEDS: SODIUM CHLORIDE 0.9% 500 ML IV SCH (16:21)
--- NOTE | 2025-05-12 18:14 | Electrocardiogram Report ---
Test Reason : Blood Pressure : */* mmHG Vent. Rate : 73 BPM Atrial Rate : 73 BPM P-R Int : 138 ms QRS Dur : 76 ms QT Int : 378 ms P-R-T Axes : 62 2 10 degrees QTcB Int : 416 ms Normal sinus rhythm Normal ECG When compared with ECG of 05-Jun-2024 12:39, No significant change was found Confirmed by Shahid Arthur ([id number]) on 05/12/2025 6:14:29 PM Referred By: Confirmed By: Shahid Arthur
--- NOTE | 2025-05-12 19:07 | Electrocardiogram Report ---
Test Reason : Blood Pressure : */* mmHG Vent. Rate : 68 BPM Atrial Rate : 68 BPM P-R Int : 142 ms QRS Dur : 72 ms QT Int : 396 ms P-R-T Axes : 36 2 -1 degrees QTcB Int : 421 ms Normal sinus rhythm Normal ECG When compared with ECG of 11-May-2025 17:49, (unconfirmed) Nonspecific T wave abnormality now evident in Anterior leads Confirmed by Shahid Arthur ([id number]) on 05/12/2025 7:06:55 PM Referred By: REFERRED SELF Confirmed By: Shahid Arthur
[2025-05-12] MEDS: diphenhydrAMINE 50 MG/ML VIAL IV STA (19:23)
[2025-05-12] MEDS: PROCHLORPERAZINE 10 MG in SYRINGE 8 ML IV ONE (19:23)
[2025-05-12] MEDS: OPTIRAY 320 125ml IV ONE (20:00)
--- NOTE | 2025-05-12 21:02 | CT Scan Report ---
Exam(s): CTA CHEST IV Amt: 115 ml optiray 320 EXAM: CT Angiography Chest With Intravenous Contrast CLINICAL HISTORY: Reason for exam: PE. TECHNIQUE: Axial computed tomographic angiography images of the chest with intravenous contrast. CTDI is 29.39 mGy and DLP is 378.36 mGy-cm. Automated exposure control was utilized for the study. A dose lowering technique was utilized adhering to the principles of ALARA. MIP reconstructed images were created and reviewed. 115 mL Optiray 320 given IV with excellent pulmonary arterial enhancement. Moderate aortic contrast. Mild breathing motion artifact. COMPARISON: None. FINDINGS: Pulmonary arteries: No pulmonary embolism. Aorta: No dissection or aneurysm. Lungs: Clear. No consolidation. Pleural space: No significant effusion. No pneumothorax. Heart: Moderate cardiomegaly. No significant pericardial effusion. No evidence of elevated right heart pressures. Bones/joints: No acute fracture. Soft tissues: Equivocal distal esophageal wall thickening is nonspecific, may be artifact, small hiatal hernia, though mild esophagitis not excluded. Lymph nodes: No enlarged lymph nodes. IMPRESSION: 1. No pulmonary embolism. 2. Lungs are clear. 3. Equivocal esophageal wall thickening, nonspecific, mild esophagitis not excluded. Electronically signed by: Kayla Asencio M.D. 05/12/25 21:01 PM
--- NOTE | 2025-05-12 22:42 | Hospitalist Progress Note ---
Date of Service May 12, 2025 Assessment & Plan (1) Chest pain: Plan 59-year-old female PMHx chest pain syndrome with abnormal stress echo, seasonal allergies, chronic sinusitis, and chronic idiopathic urticaria presenting for worsening chest pain with exertion over the past 2 months [employer], worsening the night [employer]. Her evaluation is overall unremarkable at this time with a normal troponin but pending the repeat. She does have T wave abnormalities in the inferior leads on her initial EKG, seem to be mostly resolved on repeat. Continues to remain with chest pain, unresolved. Admission for persistent chest pain. #Chest pain Ongoing chest pain which has been persistent for 2 months, but worsened the night [employer] and then again at 1530 day of arrival. She was diagnosed with a chest pain syndrome in presence of an abnormal stress echo per most recent cardiology note (05/06/[address] Chery). Stress echo April 22, 2025 revealed abnormal EKG response and suggested small area of apical hypokinesis with exercise. She is to be scheduled for cardiac catheterization but there was difficulties having this covered by insurance. Wells criteria 0; no clinical signs of DVT. Due to ongoing and worsening symptoms, admission for chest pain with cardio consult placed. - CBC grossly unremarkable; CMP BUN 25 and ratio 32.9; troponin negative. - COVID/Flu/RSV negative - CXR WNL - EKG initially NSR with T wave abnormalities, resolved in EKG #2 - EKG prn CP - Echo 04/22/2025 abnormal for ischemia - Lipid panel 04/2025 total 217, LDL 110, HDL 76, TG 153; not on statin - start atorvastatin 40mg daily - Zofran prn N/V - NTG prn CP - Continue ASA daily - Cardiology consulted - appreciate input + recs Cardiac cath was negative. looking into other causes, will get a ct scan of chest to rule out aneurysm, pulmonary emboli. #Allergies/Idiopathic urticaria- Cetirizine, azelastine nasal spray prn, flonase nasal spray, hydroxyzine prn, ipratropium bromide nasal spray prn - hold prn, continue daily medications #Psych- Sertraline - continue #Cold sores- Valacyclovir, takes every other day, last dose 05/10/2025 - continue No longer taking opioids; PDMP independently reviewed at time of admission - d/c hydrocodone-acetaminophen Dispo: Admit, PCU VTE Prophylaxis: SCDs Admission and Anticipated Discharge Date Admission Date: May 11, 2025 Subjective 59 yo female reports continuing to have chest pain. She reports also having a headache. Physical Exam Constitutional: WD/WN, vitals as above Respiratory: normal respiratory effort, lungs clear to auscultation Cardiovascular: RRR, no murmur, no edema Neurologic: PERRL, EOMI, accommodation nl, no face palsy, no dysarthria Psychiatric: A+Ox3, euthymic affect Results & Data Results & Data Vital Signs (Past 12 Hours) Vital Signs Temp Pulse Pulse Resp BP Pulse Ox O2 Del Method 05/12/25 19:19 37.1 C 83 12 104/66 95 Room Air 05/12/25 18:00 69 108/73 05/12/25 16:12 95/61 L 05/12/25 15:24 36.8 C 67 16 97/57 L 97 Room Air 05/12/25 14:47 36.8 C 71 18 101/57 L 96 Room Air 05/12/25 14:24 36.6 C 53 L 16 106/69 98 Room Air 05/12/25 14:21 60 05/12/25 13:58 55 L 18 106/69 97 Room Air 05/12/25 13:30 58 L 18 102/60 98 Room Air 05/12/25 13:15 59 L 18 104/56 L 94 Room Air 05/12/25 11:25 65 14 122/69 95 Room Air PG Care Time/CCT Total # of Minutes Spent Total Time Spent with Patient: Total time spent is greater than 50% in coordination of care (as documented) at patient's floor/unit and/or counseling patient: Coding Level of Care Code 09425 SUB INP/OBS CARE 3/50MIN Diagnoses Chest pain R07.9 Time Spent (min) 50
[2025-05-12 23:00] VITALS: TEMP 97.9
[2025-05-12] MEDS: PANTOprazole 40 MG/10 ML SYR IV SCH (23:27)
[2025-05-13 07:05] LABS: Hematocrit (blood only) 38.4 % (37.0-47.0); Hemoglobin 13.5 g/dl (12.0-16.0); Mean Corpuscular Hemoglobin 32.3 pg (25.0-34.0); Mean Corpuscular Volume 91.9 fL (80.0-100.0); Platelet Count 229 K/uL (130-400); RDW Standard Deviation 41.2 fL (36.4-46.3); Red Blood Count 4.18 M/uL (4.20-5.40); White Blood Count 5.00 K/ul (4.8-10.8)
[2025-05-13 07:27] LABS: Anion Gap 7.0 (3-11); Blood Urea Nitrogen 16.0 mg/dl (6-23); Calcium 8.7 mg/dl (8.6-10.3); Carbon Dioxide 25.0 mmol/L (21-32); Chloride 107.0 mmol/L (98-107); Creatinine Clr Calc Pharmacy 67.2 ml/min; Glucose 97.0 mg/dl (70-99(Fasting)); Potassium 4.2 mmol/L (3.5-5.1); Sodium 139.0 mmol/L (136-145)
[2025-05-13 08:13] VITALS: BP 102/67; RESP 20; O2SAT 95
[2025-05-13] MEDS: SUCRALFATE 1 GM/10 ML UDC PO SCH (09:33)
--- NOTE | 2025-05-13 09:52 | Discharge Summary ---
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 Her evaluation is overall unremarkable at this time with a normal troponin but pending the repeat. She does have T wave abnormalities in the inferior leads on her initial EKG, seem to be mostly resolved on repeat. Continues to remain with chest pain, unresolved. Admission for persistent chest pain. #Chest pain Ongoing chest pain which has been persistent for 2 months, but worsened the night [employer]PER[employer] and then again at 1530 day of arrival. She was diagnosed with a chest pain syndrome in presence of an abnormal stress echo per most recent cardiology note (05/06/[address] Chery). Stress echo April 22, 2025 revealed abnormal EKG response and suggested small area of apical hypokinesis with exercise. She is to be scheduled for cardiac catheterization but there was difficulties having this covered by insurance. Wells criteria 0; no clinical signs of DVT. Due to ongoing and worsening symptoms, admission for chest pain with cardio consult placed. - Continue ASA daily - Cardiology consulted - appreciate input + recs Cardiac cath was negative. Ct scan of chest showed signs of esophagitis. Patient showed improvement with carafate and PPI. Will recommend outpatient Endoscopy. #Allergies/Idiopathic urticaria- Cetirizine, azelastine nasal spray prn, flonase nasal spray, hydroxyzine prn, ipratropium bromide nasal spray prn - hold prn, continue daily medications #Psych- Sertraline - continue #Cold sores- Valacyclovir, takes every other day, last dose 05/10/2025 - continue No longer taking opioids; PDMP independently reviewed at time of admission - d/c hydrocodone-acetaminophen Admission HPI Per Admitting Provider 59-year-old female PMHx chest pain syndrome with abnormal stress echo, seasonal allergies, chronic sinusitis, and chronic idiopathic urticaria presenting for worsening chest pain with exertion over the past 2 months [employer]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 Patient states that for the past 1 to 2 months she has had on and off chest pain that was mainly with exertion. 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 She states that after climbing a flight of steps she normally have some SOB but then resolved with rest. 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 She describes the pain as starting to worsen at 1530 the day of arrival, described as a heaviness with occasional stabbing in the left side. It is located just under her breast, directly to the back in the same location, into her left side of neck and jaw, but not into her arm. Does not radiate elsewise. No nausea or vomiting. She states at its worst, it is a 6 out of 10 on the pain scale at presently it is a 3 out of 10 on the pain scale s/p morphine. She does have occasional dizziness that comes and goes mainly with deep breaths, but not elsewise. Denies palpitations, abdominal pain, N/V/D/C, numbness/tingling, fever/chills, URI symptoms, LUTS, calf pain or tenderness, edema, weakness, syncope, or falls. She has no history of DVT or PE. No family history of such. No hematologic conditions. She states that she was scheduled to have a catheterization but given that insurance would not cover it, it was not able to be placed on the schedule yet. Given that her pain was on relentless, she came to the ED. ED evaluation reveals CBC without leukocytosis, H&H stable; CMP BUN 25, ratio 32.9; troponin 3.1, pending repeat; COVID/flu/RSV negative; CXR normal; EKG #1 NSR, right superior axis deviation, T wave abnormality inferior leads at 73 bpm; EKG #2 NSR at 73 bpm.; Provided with Zofran 4 mg IV and morphine 4 mg IV in ED. Please see Dr. Lopez's attestation for adjustments/additions to treatment plan. Discharge Exam Constitutional WD/WN, vitals as above Respiratory normal respiratory effort, lungs clear to auscultation Cardiovascular RRR, no murmur, no edema Neurologic PERRL, EOMI, accommodation nl, no face palsy, no dysarthria Psychiatric A+Ox3, euthymic affect Discharge Plan Discharge Items Patient Disposition: Home - Self-Care Reason For Visit: CP, EKG CHANGES Discharge Diagnosis: esophagitis. Condition on Discharge: Fair Activity: Resume your previous activity Non-emergency contact: Primary Care Provider Call non-emergency contact if: you have any medication questions Follow-up/Referrals: Karlene Spears MD [Primary Care Provider] - 05/19/25 11:30 am Arleen Valdovinos CRNP [Nurse Practitioner] - 05/17/25 2:00 pm Diet: Heart Healthy Addtl Attending Provider Instructions: Recommend followup with PCP in 1-2 weeks Recommend new patient appointment with GI Recommend taking Pantoprazole which is a proton pump inhibitor This will help decrease acid production. This will likely be tapered in 4 weeks to once daily. Sucralfate is a medication that will help coat your GI tract and also limit discomfort. This will be given only for 4 weeks, no need to taper. Side effects of sucralfate: the main one which occurs in 1-10% of cases is constipation. Nausea, diarrhea vomiting, gas, dry mouth are others but not as common as constipation. You may stop sucralfate if the side effects are too unbearable. Pending Studies at Discharge: No Stand-Alone Forms: [facility], Smoking Cessation Medications and DC Order Prescriptions: New sucralfate [Carafate] 1 gram tablet 1 g PO ACHS 28 Days Qty: 28 0RF pantoprazole 40 mg tablet,delayed release (DR/EC) 40 mg PO BID Qty: 60 0RF Continued sertraline 50 mg tablet 50 mg PO QAM Qty: 90 3RF Rx Instructions: take 1 tablet by mouth daily valacyclovir 500 mg tablet 500 mg PO QAM Qty: 90 1RF azelastine 137 mcg (0.1 %) spray,non-aerosol 2 spray intranasal BID PRN (Reason: nasal congestion) Qty: 30 11RF Rx Instructions: administer into each nostril ipratropium bromide 21 mcg (0.03 %) spray,non-aerosol 2 spray intranasal TID PRN (Reason: postnasal drip) Qty: 90 3RF Rx Instructions: administer into each nostril Hair,Skin and Nails Tablet 1 tab PO QAM vitamin B complex Capsule 1 cap PO QAM cholecalciferol (vitamin D3) [Vitamin D3] 25 mcg (1,000 unit) Tablet 25 mcg PO QAM Probiotic Blend 2 billion cell-50 mg Capsule 1 cap PO QAM fluticasone propionate 50 mcg/actuation spray,suspension 2 spray intranasal QAM Rx Instructions: administer into each nostril cetirizine 10 mg Tablet 20 mg PO BID hydrocodone-acetaminophen 5-325 mg tablet 1 tab PO Q6H PRN (Reason: pain) Qty: 30 0RF calcium carbonate 500 mg calcium (1,250 mg) Tablet 500 mg PO DAILY triamcinolone acetonide 0.1 % ointment 1 applic topical BID PRN (Reason: SKIN IRRITATIONS) Rx Instructions: Apply to affected area of neck and chest twice a day for 7 to 10 days hydroxyzine HCl 25 mg tablet 25 mg PO HS PRN (Reason: Itching) Rx Instructions: TAKE 1 TABLET BY MOUTH ONCE DAILY AT BEDTIME FOR ITCHING hydrocortisone 2.5 % ointment 1 applic topical BID PRN (Reason: SKIN IRRITATIONS) Rx Instructions: Apply to affected area face twice a day for 7 to 10 days Discharge Orders: Discharge Order (Routine); Ordered 05/13/25 Ordered By: Asaf Sheth Admission Data Admit Date/Time: 05/11/25 20:01 Attending Provider: Asaf Sheth Admit Provider: Alice Lopez Primary Care Provider: Karlene Spears Other Providers: Shahid Arthur Other Interventions: Discharge Summary Assessment (RN) Last Done: 05/13/25 10:34 Hospital Stay Data Consultations 05/11/25 19:09 ED Decision to Admit Stat 05/11/25 22:22 Consult Cardiology Routine Procedures Performed Operation Date: 05/12/25 12:00 Actual Procedures p Cineradiography w/Routine Exam - Shahid Arthur MD p Cath, Left with Cors and Vent - Shahid Arthur MD Diagnostic Imagining Performed 05/12/25 10:20 CL Cath Imgs for PACS use only Stat 05/12/25 18:38 CT angio chest PE protocol Urgent Pending Results Patient Have Any Pending Studies at Discharge: No Discharge Instructions Given to Patient (Per Discharging Provider) Recommend followup with PCP in 1-2 weeks Recommend new patient appointment with GI Recommend taking Pantoprazole which is a proton pump inhibitor This will help decrease acid production. This will likely be tapered in 4 weeks to once daily. Sucralfate is a medication that will help coat your GI tract and also limit discomfort. This will be given only for 4 weeks, no need to taper. Side effects of sucralfate: the main one which occurs in 1-10% of cases is constipation. Nausea, diarrhea vomiting, gas, dry mouth are others but not as common as con stipation. You may stop sucralfate if the side effects are too unbearable. Total Time Total Time Spent Total Time Spent (In Minutes): 35 Coding Level of Care Code 16027 INP/OBS DISCH >30 MIN Diagnoses Chest pain R07.9
[2025-05-13 11:27] VITALS: PULSE 61
== END 2025-05-13 10:35 | disposition home or self-care (01) ==
LOC: ED 17:14 → SUATTDRO 20:01 → 2S 20:01 → INTOOBSV 20:01 → 2S 21:13